=== PATIENT | female | born 1960 | race Hispanic/Latino ===

== ENCOUNTER 2017-05-26 15:56 | Observation (INO) | payer MEDICARE, BC ==
--- NOTE | 2017-05-26 16:35 | ED PDOC ---
Arrival/HPI - General Chief Complaint: Upper Extremity Problem/Injury Time Seen by Provider: 05/26/17 15:58 Historian: Patient - History of Present Illness Narrative History of Present Illness (Text): 05/26/17 16:22 A 56 year old female, whose past medical history includes chronic bronchitis, anxiety, anemia, migraine, GERD, hypertension, partial hysterectomy, and tonsillectomy, presents to the emergency department complaining of constant upper left -side chest pain for 4-5 days. Patient reports also experiencing left arm pain radiating up to left-side neck. The arm pain feels like a tightness and does not appear to be associated with position. Symptoms became worse today and became concerned. Patient notes also having chills, shortness of breath, cough, congestion (due to chronic bronchitis) but says this is chronic. She denies any nausea, vomiting, diarrhea, headache, dizziness, or any other complaints. PMD: Dr. Hernandez Time/Duration: < week (4-5 days) Symptom Onset: Gradual Symptom Course: Unchanged Past Medical History - Provider Review Nursing Documentation Reviewed: Yes - Infectious Disease Hx of Infectious Diseases: None - Tetanus Immunization Tetanus Immunization: Unknown - Reproductive Menopause: Yes - Cardiac Hx Hypertension: Yes - Pulmonary Hx Chronic Obstructive Pulmonary Disease (COPD): Yes - HEENT Hx HEENT Disorder: Yes (uses eyeglasses) - Hematological/Oncological Hx Anemia: Yes - Musculoskeletal/Rheumatological Hx Musculoskeletal Disorders: Yes (had laminectomy) Hx Falls: No Hx Herniated Disk: Yes Other/Comment: left knee surgery - Gastrointestinal Hx Gastrointestinal Disorders: Yes Hx Gall Bladder Disease: Yes (had cholecystectomy) Hx Gastroesophageal Reflux: Yes Other/Comment: gastric bypass. triple hernia in the abdominal area - Psychiatric Hx Anxiety: Yes Hx Depression: No Hx Emotional Abuse: No Hx Physical Abuse: No Hx Substance Use: No - Past Surgical History Past Surgical History: No Previous - Surgical History Hx Appendectomy: Yes Hx Cholecystectomy: Yes Hx Gastric Bypass Surgery: Yes Hx Hysterectomy: Yes (partial) Hx Orthopedic Surgery: Yes (L KNEE) Other/Comment: tonsillectomy - Anesthesia Hx Malignant Hyperthermia: No - Suicidal Assessment Feels Threatened In Home Enviroment: No Family/Social History Family/Social History: CAD/[place] (sisters) Smoking Status: Heavy Smoker > 10 Cigarettes Daily Hx Alcohol Use: No Hx Substance Use: No Substance used: PAIN MEDS Hx Substance Use Treatment: No Allergies/Home Meds Allergies/Adverse Reactions: Allergies No Known Allergies Allergy (Verified 04/18/15 20:56) Home Medications: Home Meds Medication Instructions Recorded Confirmed Alprazolam [Xanax] 0.5 mg PO TID 05/26/17 05/26/17 Carisoprodol [Soma] 350 mg PO TID 05/26/17 05/26/17 Celecoxib [Celebrex] 200 mg PO DAILY 05/26/17 05/26/17 Gabapentin [Neurontin] 600 mg PO TID 05/26/17 05/26/17 Hydrocodone/Acetaminophen 0 tab PO PRN PRN 05/26/17 05/26/17 [Acetaminophen-Hydrocodone Bitartrate 325 mg-5] Levofloxacin [Levaquin] 500 mg PO DAILY 05/26/17 05/26/17 Lisinopril/Hydrochlorothiazide 1 each PO DAILY 05/26/17 05/26/17 [Lisinopril-Hctz 10-12.5 mg Tab] traMADol [Ultram] 50 mg PO QID 05/26/17 05/26/17 Review of Systems - Physician Review All systems were reviewed & negative as marked: Yes - Review of Systems Respiratory: SOB, Cough (chronic) Cardiovascular: Chest Pain (left-side) Gastrointestinal: absent: Diarrhea, Nausea, Vomiting Musculoskeletal: Other (left arm pain radiating to left-side neck) Neurological: absent: Headache, Dizziness Physical Exam Vital Signs Reviewed: Yes Vital Signs Temp Pulse Resp BP Pulse Ox 05/26/17 18:06 65 18 136/65 99 05/26/17 16:24 98.5 F 66 18 138/62 99 Temperature: Afebrile Blood Pressure: Normal Pulse: Regular Respiratory Rate: Normal Appearance: Positive for: Well-Appearing Pain Distress: None Mental Status: Positive for: Alert and Oriented X 3 - Systems Exam Head: Present: Atraumatic, Normocephalic Pupils: Present: PERRL Conjunctiva: Present: Normal Mouth: Present: Moist Mucous Membranes Pharnyx: Present: Normal. No: ERYTHEMA, EXUDATE Neck: Present: Normal Range of Motion Respiratory/Chest: Present: Clear to Auscultation, Good Air Exchange. No: Respiratory Distress, Accessory Muscle Use Cardiovascular: Present: Regular Rate and Rhythm, Normal S1, S2. No: Murmurs Abdomen: Present: Normal Bowel Sounds. No: Tenderness, Distention, Peritoneal Signs Back: Present: Normal Inspection Upper Extremity: Present: Normal Inspection. No: Cyanosis, Edema Lower Extremity: Present: Normal Inspection. No: Edema Neurological: Present: GCS=15, CN II-XII Intact, Speech Normal Skin: Present: Warm, Dry, Normal Color. No: Rashes Psychiatric: Present: Alert, Oriented x 3, Normal Insight, Normal Concentration Medical Decision Making ED Course and Treatment: 05/26/17 16:27 Impression: 56 year old female with left-side chest pain associated with left arm pain radiating with left-side neck. No acute findings on physical exam. Differential: ACS vs cervical radiculopathy Plan: -- EKG -- Chest X-ray -- Labs -- Urinalysis -- Reassess and disposition Prior Visits: Notes and results from previous visits were reviewed. Patient was last seen in the emergency department on 10/16/2015 for shortness of breath, abdominal pain, and diarrhea. Patient was admitted. Progress Notes: EKG: Ordered, reviewed, and independently interpreted the EKG. Rate : 65 BPM Rhythm : NSR Interpretation : No ST-segment elevations or depressions, no T-wave inversions, normal intervals. Comparison : No previous EKG for comparison. 05/26/2017 17:07 Chest X-ray IMPRESSION: No active disease. Dictator: Frandy Post MD 05/26/17 19:31 The patient presents with the noted history with acs risk factors of smoker, post-menopausal and HTN. The pain radiates to the neck and L arm; it may be related to a radiculopathy but that pain does not appear to be related to position. She gained mild improvement after toradol and valium but pain is still present. Labs are nondiagnostic. Given risk factors, will observe further on tele for serial CE and cardiology eval. Case discussed with Dr. Hernandez for placement on his service. - Lab Interpretations Lab Results: 05/26/17 16:18 05/26/17 16:18 Lab Results 05/26/17 17:33: Urine Color Yellow, Urine Appearance Clear, Urine pH 6.0, Ur Specific Orange <= 1.005, Urine Protein Negative, Urine Glucose (UA) Negative, Urine Ketones Negative, Urine Blood Negative, Urine Nitrate Negative, Urine Bilirubin Negative, Urine Urobilinogen 0.2, Ur Leukocyte Esterase Negative 05/26/17 16:18: Sodium 137, Potassium 4.1, Chloride 104, Carbon Dioxide 28, Anion Gap 9 L, BUN 10, Creatinine 0.8, Est GFR ( Amer) > 60, Est GFR (Non -Af Amer) > 60, Random Glucose 88, Calcium 8.9, Magnesium 1.8, Total Bilirubin 0.4, AST 30, ALT 26, Alkaline Phosphatase 71, Lactate Dehydrogenase 445, Total Creatine Kinase 63, Troponin I < 0.01 D, NT-Pro-B Natriuret Pep 107, Total Protein 6.9, Albumin 4.0, Globulin 2.9, Albumin/Globulin Ratio 1.4, Lipase 131 05/26/17 16:18: PT 11.7, INR 1.07, APTT 28.6 05/26/17 16:18: WBC 6.8 D, RBC 4.07, Hgb 8.6 L, Hct 28.8 L, MCV 70.8 L, MCH 21.1 L, MCHC 29.9 L, RDW 19.0 H, Plt Count 241, MPV 9.1, Gran % 57.1, Lymph % ( Auto) 33.2, Towner % (Auto) 8.2 H, Eos % (Auto) 1.2 L, Baso % (Auto) 0.3, Gran # 3.90, Lymph # 2.3, Towner # 0.6, Eos # 0.1, Baso # 0.02 I have reviewed the lab results: Yes - RAD Interpretation Radiology Orders: 05/26/17 16:32 CHEST PORTABLE [RAD] Stat - Medication Orders Current Medication Orders: Discontinued Medications Aspirin (Aspirin Chewable) 324 mg PO STAT STA Stop: 05/26/17 18:24 Last Admin: 05/26/17 18:48 Dose: 324 mg Diazepam (Valium) 5 mg PO ONCE ONE Stop: 05/26/17 17:00 Last Admin: 05/26/17 17:31 Dose: 5 mg Ketorolac Tromethamine (Toradol) 30 mg IVP STAT STA Stop: 05/26/17 17:00 Last Admin: 05/26/17 17:31 Dose: 30 mg MAR Pain Assessment Document 05/26/17 17:31 [email or web address] (Rec: 05/26/17 17:[address] ) Pain Reassessment Is this a pain reassessment? No Sleep Is patient sleeping during reassessment? No Presence of Pain Presence of Pain Yes Pain Scale Used Pain Scale Used Numeric Location Left, Right or Bilateral Left Pain Location Body Site Arm Description Description Constant Intensity of Pain at present 6 Pain Behavior Facial Grimacing Aggravating Factors Changing Position Alleviating Factors/Management Medication Techniques Alleviating Factors Medication IVP Administration Document 05/26/17 17:31 [facility] (Rec: 05/26/17 17:[address] ) Charges for Administration # of IVP Administrations 1 - Scribe Statement The provider has reviewed the documentation as recorded by the Isaak Allen Provider Scribe Attestation: All medical record entries made by the Scribe were at my direction and personally dictated by me. I have reviewed the chart and agree that the record accurately reflects my personal performance of the history, physical exam, medical decision making, and the department course for this patient. I have also personally directed, reviewed, and agree with the discharge instructions and disposition. Disposition/Present on Arrival - Present on Arrival Any Indicators Present on Arrival: No History of DVT/PE: No History of Uncontrolled Diabetes: No Urinary Catheter: No History of Decub. Ulcer: No History Surgical Site Infection Following: None - Disposition Have Diagnosis and Disposition been Completed?: Yes Diagnosis: Chest pain Disposition: HOSPITALIZED Disposition Time: 18:20 Patient Plan: Observation, Telemetry Condition: FAIR
[2017-05-26 16:43] LABS: BASO # 0.02 K/mm3 (0.0-2.0); BASO % 0.3 % (0.0-3.0); EOS # 0.1 (0.0-0.7); EOS % 1.2 % (1.5-5.0); GRAN # 3.9 (1.4-6.5); GRAN % 57.1 % (50.0-68.0); HEMATOCRIT 28.8 % (36.0-48.0); LYMPH # 2.3 (1.2-3.4); LYMPH % 33.2 % (22.0-35.0); MEAN CELL VOLUME 70.8 fl (80.0-105.0); MEAN CORPUSCULAR HEMOGLOBIN 21.1 pg (25.0-35.0); MEAN CORPUSCULAR HGB CONC 29.9 g/dl (31.0-37.0); MEAN PLATELET VOLUME 9.1 fl (7.0-11.0); MONO # 0.6 (0.1-0.6); MONO % 8.2 % (1.0-6.0); WHITE BLOOD COUNT 6.8 10^3/ul (4.5-11.0)
[2017-05-26 16:57] LABS: INR 1.07 (0.93-1.08); PARTIAL THROMBOPLASTIN TIME 28.6 Seconds (25.1-36.5)
[2017-05-26 16:58] LABS: ALB/GLOB RATIO 1.4 (1.1-1.8); ALKALINE PHOSPHATASE 71 U/L (38-126); ALT/SGPT 26 U/L (7-56); AST/SGOT 30 U/L (14-36); BILIRUBIN,TOTAL 0.4 mg/dL (0.2-1.3); BLOOD UREA NITROGEN 10 mg/dL (7-21); CALCIUM 8.9 mg/dL (8.4-10.5); CARBON DIOXIDE 28 mmol/L (21-33); CHLORIDE 104 mmol/L (98-107); GFR AFRICAN-AMERICAN > 60; GLUCOSE,RANDOM 88 mg/dL (70-110); LIPASE 131 U/L (23-300); MAGNESIUM 1.8 mg/dL (1.7-2.2); POTASSIUM 4.1 mmol/L (3.6-5.0); SODIUM 137 mmol/L (132-148); TOTAL PROTEIN 6.9 g/dL (5.8-8.3)
[2017-05-26 17:09] LABS: TROPONIN I < 0.01 ng/mL
--- NOTE | 2017-05-26 17:09 | RAD ---
HISTORY: L upper chest pain, shoulder pain COMPARISON: 10/29/2016 FINDINGS: LUNGS: No active pulmonary disease. PLEURA: No significant pleural effusion identified, no pneumothorax apparent. CARDIOVASCULAR: Normal. OSSEOUS STRUCTURES: No significant abnormalities. VISUALIZED UPPER ABDOMEN: Normal. OTHER FINDINGS: None. IMPRESSION: No active disease.
[2017-05-26 17:45] LABS: URINE APPEARANCE CLEAR (CLEAR); URINE BILIRUBIN NEGATIVE (NEGATIVE); URINE BLOOD NEGATIVE (NEGATIVE); URINE COLOR YELLOW (YELLOW); URINE GLUCOSE (UA) NEGATIVE (NEGATIVE); URINE KETONE NEGATIVE (NEGATIVE); URINE LEUKOCYTE ESTERASE NEGATIVE Leu/uL (NEGATIVE); URINE PROTEIN NEGATIVE mg/dL (<30 mg/dL); URINE UROBILINOGEN 0.2 E.U./dL (<1 E.U./dL)
--- NOTE | 2017-05-26 21:52 | CARD ---
APPROVED REPORT EKG Measurement Heart [id number] <Conclusion> Normal sinus rhythm Normal ECG
[2017-05-26] MEDS: Oxycodone/Acetaminophen 5/325 mg Tab PO PRN (21:58)
[2017-05-27 01:37] LABS: TROPONIN I < 0.01 ng/mL
[2017-05-27 02:24] VITALS: RESP 20; BMI 36.3
[2017-05-27 06:02] LABS: BASO # 0.03 K/mm3 (0.0-2.0); BASO % 0.5 % (0.0-3.0); EOS # 0.1 (0.0-0.7); EOS % 2.1 % (1.5-5.0); GRAN # 3.11 (1.4-6.5); GRAN % 49.8 % (50.0-68.0); HEMATOCRIT 27.2 % (36.0-48.0); LYMPH # 2.5 (1.2-3.4); LYMPH % 39.7 % (22.0-35.0); MEAN CELL VOLUME 69.6 fl (80.0-105.0); MEAN CORPUSCULAR HGB CONC 30.1 g/dl (31.0-37.0); MEAN PLATELET VOLUME 9.1 fl (7.0-11.0); MONO # 0.5 (0.1-0.6); MONO % 7.9 % (1.0-6.0); WHITE BLOOD COUNT 6.2 10^3/ul (4.5-11.0)
[2017-05-27 06:29] LABS: TROPONIN I < 0.01 ng/mL
[2017-05-27 06:36] VITALS: TEMP 98.3; O2SAT 95
[2017-05-27 07:35] LABS: ALB/GLOB RATIO 1.3 (1.1-1.8); ALKALINE PHOSPHATASE 66 U/L (38-126); ALT/SGPT 34 U/L (7-56); AST/SGOT 25 U/L (14-36); BILIRUBIN,TOTAL 0.5 mg/dL (0.2-1.3); BLOOD UREA NITROGEN 11 mg/dL (7-21); CALCIUM 9.1 mg/dL (8.4-10.5); CARBON DIOXIDE 26 mmol/L (21-33); CHLORIDE 103 mmol/L (98-107); GFR AFRICAN-AMERICAN > 60; GLUCOSE,RANDOM 95 mg/dL (70-110); POTASSIUM 3.9 mmol/L (3.6-5.0); SODIUM 135 mmol/L (132-148); TOTAL PROTEIN 6.5 g/dL (5.8-8.3)
[2017-05-27] MEDS: Oxycodone/Acetaminophen 5/325 mg Tab PO PRN (08:47)
--- NOTE | 2017-05-27 11:43 | CON ---
DATE: 05/27/2017 HISTORY: The patient is a 56-year-old woman who presents with atypical left shoulder pain and left axillary pain. Her symptoms are now resolved. PAST MEDICAL HISTORY: The patient's past medical history is notable for history of hypertension. She is status post gastric bypass in the past. No diabetes mellitus. No previous cardiac history. She denies angina, denies shortness of breath. SOCIAL HISTORY: The patient is a long-time smoker for many years. REVIEW OF SYSTEMS: A 14-point review of systems was reviewed in detail. No cardiac symptomatology is noted. PHYSICAL EXAMINATION: VITAL SIGNS: Stable. NECK: Negative JVD. LUNGS: Without rales. HEART: S1, S2. EXTREMITIES: Without edema. EKG is within normal limits. Troponins are negative x3. IMPRESSION: 1. Atypical chest pain. 2. No evidence for acute coronary syndrome. 3. Likely musculoskeletal origin of her discomfort which is now resolved. 4. Chronic obstructive pulmonary disease from long history of smoking. 5. History of hypertension. Given these findings, the patient can be discharged from a cardiac perspective. We will arrange for an outpatient stress test given her multiple cardiac risk factors. I have discussed with the patient about the need to stop smoking. The patient understands. Followup instructions have been given to her. Aiden Leslie MD cc:
[2017-05-27 12:20] VITALS: BP 100/67; PULSE 58
--- NOTE | 2017-05-27 12:33 | HP ---
HISTORY OF PRESENT ILLNESS: The patient is a 56 year old woman with a past medical history of hypertension and cervical radiculopathy who presented to [facility] for evaluation of left-sided chest discomfort. The patient states that she was in her usual state of health until approximately 4 days ago when she developed a left-sided chest discomfort. She denied any strenuous activity prior to onset of chest discomfort and further denied dyspnea , palpitations, orthopnea or lower extremity edema associated with her symptoms. She states that the discomfort is to her left lateral chest wall and radiates along the left aspect of her neck and down her left upper extremity. She also reports associated paresthesias with her symptoms. She was concerned that the etiology may be cardiac in nature and thus opted for ED evaluation. Upon arrival to the ED she was noted to be afebrile and hemodynamically stable. Initial laboratory studies, including a troponin, were unremarkable. An EKG demonstrated a normal sinus rhythm at [address]-T wave changes and a CXR demonstrated no acute pathology. She was then admitted to the telemetry larios to cycle cardiac enzymes and for evaluation by Dr. Leslie of cardiology. This morning on examination she reports resolution of her discomfort and offers no complaints. PAST MEDICAL HISTORY: As per HPI, also anxiety disorder, anemia of chronic disease and lumbago secondary to multilevel disk disease. PAST SURGICAL HISTORY: Gastric bypass, L4-L5 fusion with hardware placement, L5 -S1 laminectomy, left total knee replacement, cholecystectomy, appendectomy and partial hysterectomy. ALLERGIES: NO KNOWN DRUG ALLERGIES. MEDICATIONS: Zestoretic 10/12.5 mg p.o. daily, Xanax 0.5 mg p.o. b.i.d., Neurontin 600 mg p.o. t.i.d., Celebrex 200 mg p.o. daily and Percocet 5/325 mg p.o. q. 6 hours p.r.n. pain. FAMILY HISTORY: Significant for hypertension and diabetes in the mother. SOCIAL HISTORY: Patient reports a former [id number] smoking history and social alcohol use. She denies illicit drug abuse. REVIEW OF SYSTEMS: A 14-point review of systems is negative except as per HPI. PHYSICAL EXAMINATION: VITAL SIGNS: Temperature 98.3, pulse 73, blood pressure 123/79, respiratory rate 20, oxygen saturation 95% on room air. GENERAL: No apparent distress. HEENT: PERRL. EOMI. No scleral icterus. Mild conjunctival pallor is noted. NECK: No JVD. No bruits. LUNGS: Clear to auscultation. CARDIOVASCULAR: Regular rate and rhythm. Normal S1 and S2. No murmurs, rubs or gallops. ABDOMEN: Normoactive bowel sounds. Soft, nontender, and nondistended. EXTREMITIES: No edema. NEUROLOGIC: Awake, alert and oriented x3. No focal motor deficits. LABORATORY DATA: WBC is 6.2, hemoglobin 8.2, hematocrit 27, platelets 226, MCV 69. Chemistry reviewed and unremarkable. Troponin < 0.01 (x3 sets). IMAGING STUDIES: Chest x-ray demonstrates no acute pathology. DIAGNOSTIC STUDIES: EKG demonstrates normal sinus rhythm at 65 beats per minute with no ST-T wave changes. ASSESSMENT: The patient is a 56 year old woman with hypertension, anxiety disorder, anemia of chronic disease, cervical radiculopathy and lumbago secondary to multilevel disk disease who presented with a 4 day history of left- sided chest wall pain with radiation up to the left neck and down the left upper extremity which has since resolved. PLAN: 1. Chest pain, no evidence for acute coronary syndrome. Etiology of pain is likely secondary to cervical radiculopathy as per history with patient. Her pain has since resolved s/p administration of Valium in the ED. EKG demonstrates no changes and troponin is negative x3 sets. Input from Dr. Leslie of cardiology is pending and consideration may be made for outpatient stress test, but again the etiology does not appear to be cardiac in nature. 2. L-S radiculopathy secondary to multilevel disk disease s/p L4-L5 fusion s/p revision s/p L5-S1 laminectomy. Continue with Percocet as needed for pain. 3. Hypertension, blood pressure controlled, continue with Zestoretic 10/12.5 mg p.o. daily. 4. Anxiety disorder. Continue with Xanax 0.5 mg p.o. t.i.d. 5. Iron deficiency anemia. Labs demonstrate H/H at patient's baseline. Patient has been on Feosol in the past, however discontinued it due to GI upset. 6. Prophylaxis. GI prophylaxis is not indicated as patient is eating. DVT prophylaxis is not indicated as the patient is ambulatory. CODE STATUS: Full code. Lenin Hernandez MD [facility]
--- NOTE | 2017-05-28 10:02 | DS ---
ADMITTING DIAGNOSIS: Atypical chest pain, rule out acute coronary syndrome. DISCHARGE DIAGNOSIS: Cervical radiculopathy. SECONDARY DIAGNOSES: Lumbosacral radiculopathy secondary to multilevel disk disease s/p L4-L5 fusion s/p revision s/p L5-S1 laminectomy, hypertension, iron deficiency anemia and anxiety disorder CONSULTANTS: Dr. Leslie (Cardiology). IMAGING STUDIES: Chest x-ray which demonstrated no acute pathology. DIAGNOSTIC STUDIES: EKG which demonstrated normal sinus rhythm at [address]-T wave changes. HISTORY OF PRESENT ILLNESS: The patient is a 56 year old woman with a past medical history of hypertension, anxiety disorder, iron deficiency anemia, cervical radiculopathy and lumbosacral radiculopathy who presented to [facility] for evaluation of left-sided chest discomfort. The patient states that she was in her usual state of health until approximately 4 days ago when she developed a left-sided chest discomfort. She denied any strenuous activity prior to onset of chest pain and further denied dyspnea, palpitations, orthopnea or lower extremity edema associated with her symptoms. She stated that her discomfort was to her left lateral chest wall and radiated along the left aspect of her neck and down her left upper extremity. She also reported associated paresthesias with her symptoms. She was concerned that the etiology may be cardiac in nature and thus opted for ED evaluation. Upon arrival to the ED she was noted to be afebrile and hemodynamically stable. Initial laboratory studies , including a troponin, were unremarkable. An EKG demonstrated a normal sinus rhythm at [address]-T wave changes and a CXR was negative. She was then admitted to the telemetry larios to cycle cardiac enzymes and for evaluation by Dr. Leslie. HOSPITAL COURSE: After administration of Valium in the ED she reported significant improvement in her symptoms. Cardiac enzymes were cycled for 3 sets, all of which were negative. The following morning she reported resolution of her chest discomfort and was ambulating around the telemetry larios with no cardiopulmonary symptoms whatsoever. She was seen and evaluated by Dr. Leslie and cleared for discharge as it was felt that the etiology of her pain was likely secondary to cervical radiculopathy and was not cardiac in origin. CONDITION: Good, improved. DISPOSITION: Home. DISCHARGE MEDICATIONS: Zestoretic 10/12.5 mg p.o. daily, Xanax 0.5 mg p.o. b.i.d., Neurontin 600 mg p.o. t.i.d., Celebrex 200 mg p.o. daily and Percocet 5/325 mg p.o. q.6 hours p.r.n. pain. DISCHARGE INSTRUCTIONS: The patient was advised that if she has any recurrence of her symptoms to present to her PMD or to the nearest ED immediately. She was also advised to refrain from excessive turning of her head and heavy lifting (>20 lbs) for 2 weeks. FOLLOWUP: The patient to follow with her PMD within 2 weeks of discharge. The patient to follow up with Dr. Leslie as scheduled for outpatient stress test. Lenin Hernandez MD [facility]
== END 2017-05-27 14:11 | disposition home or self-care (01) ==
LOC: ED 15:56 → ERH 18:30 → 2RSO 23:18
PROVIDERS: ADMIT Student in an Organized Health Care Education/Training Program; ATTEND Student in an Organized Health Care Education/Training Program
DX: M54.12 Radiculopathy, cervical region (principal); R07.89 Other chest pain; J44.9 Chronic obstructive pulmonary disease, unspecified; M54.17 Radiculopathy, lumbosacral region; F17.210 Nicotine dependence, cigarettes, uncomplicated; I10 Essential (primary) hypertension; D50.9 Iron deficiency anemia, unspecified; F41.9 Anxiety disorder, unspecified; Z90.710 Acquired absence of both cervix and uterus; Z96.652 Presence of left artificial knee joint; Z98.1 Arthrodesis status; Z98.84 Bariatric surgery status; K21.9 Gastro-esophageal reflux disease without esophagitis; Z82.49 Family history of ischemic heart disease and other diseases of the circulatory system; Z83.3 Family history of diabetes mellitus
CPT/HCPCS: 36415; 71010; 80053; 81003; 82550; 83615; 83690; 83735; 83880; 84484; 85025; 85610; 85730; 93005; 96374; 99285; G0378; J1885